=== PATIENT | female | born 1940 | race Caucasian/White ===

== ENCOUNTER 2016-10-11 20:30 | Observation (INO) | payer OTHER ==
[~2016-10-11] VITALS: Ht 162.6 cm; Wt 69.6 kg
--- NOTE | 2016-10-11 21:21 | NUR ---
PT TO [facility] WITH C/O LEENA BP 240/100 AT HOME AND LUE NUMBNESS STARTED AT 6PM. PT DENIES ANY OTHER SIMPTOMS, DENIES ANY PAIN. NUMBNESS RESOLVING NOW AND ONLY AT [facility]. NEUROS INTACT. BP 188/96 IN TRIAGE. HX OF HTN, ARTHRITIS.
--- NOTE | 2016-10-11 22:19 | NUR ---
PT IN RM 7, CHANGED INTO GOWN. AWAITING PROVIDER EVAL
--- NOTE | 2016-10-11 22:30 | ED GENERAL ADULT ---
See Addendum History of Present Illness General Chief Complaint: General Adult Stated Complaint: NUMBNESS IN LEFT ARM, HIGH BP PER FAMILY Source: patient, family Exam Limitations: poor historian Vital Signs & Intake/Output Vital Signs & Intake/Output Vital Signs Date Time Temp Pulse Resp B/P Pulse O2 O2 Flow FiO2 Ox Delivery Rate 10/115 98.7 105 20 128/84 96 Room Air 10/11 2220 Room Air 10/11 2116 98.6 91 18 188/96 96 Room Air ED Intake and Output 10/12 0000 10/11 1200 Intake Total 0 Output Total Balance 0 Intake, Oral 0 Patient 162 lb Weight Allergies Coded Allergies: No Known Allergies (10/11/16) Triage Note: PT TO [facility] WITH C/O LEENA BP 240/100 AT HOME AND LUE NUMBNESS STARTED AT 6PM. PT DENIES ANY OTHER SIMPTOMS, DENIES ANY PAIN. NUMBNESS RESOLVING NOW AND ONLY AT [facility]. NEUROS INTACT. BP 188/96 IN TRIAGE. HX OF HTN, ARTHRITIS. Triage Nurses Notes Reviewed? yes Onset: Abrupt Duration: hour(s): Timing: recent history HPI: 10/11/16 11:13 PM 76-year-old female presents to the emergency department with a sudden onset of her left arm turning white and becoming extremely painful and an inability to move it with numbness to the left arm. According to the patient and her son. Approximately 2 hours prior to admission she had an episode. Over approximately 15-30 minutes the symptoms resolved and the left hand return to normal color. The onset of the symptoms were abrupt, the duration was just earlier this evening, the severity was significant; as her symptoms required to come to the emergency department for care. She has a past medical history of hypertension. On physical exam she is awake alert oriented 3. Cranial nerves are grossly intact. She has no extremity weakness. Capillary refill to the left hand is normal and she has equal palpable radial pulses. (JERO GONZÁLES DO) Past History Travel History Traveled to [place] past 21 day No Medical History Any Pertinent Medical History? see below for history Cardiovascular: hypertension Musculoskeletal: osteoarthritis Surgical History Surgical History: non-contributory Psychosocial History What is your primary language Uzbek Tobacco Use: Never used Family History Hx Contributory? No (JERO GONZÁLES DO) Review of Systems Review of Systems Constitutional: Denies: fever. EENTM: Denies: visual changes. Respiratory: Denies: short of breath. Cardiovascular: Denies: chest pain. GI: Denies: abdominal pain. Genitourinary: Reports: no symptoms. Musculoskeletal: Reports: see HPI. Skin: Reports: no symptoms. Neurological/Psychological: Reports: see HPI. Denies: headache. Hematologic/Endocrine: Reports: no symptoms. (JERO GONZÁLES DO) Physical Exam Physical Exam General Appearance: alert, awake, anxious, moderate distress Head: atraumatic, normal appearance Eyes: Bilateral: normal appearance, PERRL, EOMI. Ears, Nose, Throat: normal pharynx, normal ENT inspection Neck: normal inspection, supple, full range of motion Respiratory: normal breath sounds, chest non-tender, no respiratory distress Cardiovascular: irregularly irregular Peripheral Pulses: 4+ radial (R), 4+ radial (L) Gastrointestinal: soft, non-tender Back: normal range of motion Extremities: normal range of motion, no edema Neurologic/Psych: no motor/sensory deficits, awake, alert, oriented x 3 Skin: intact, normal color, warm/dry Core Measures ACS in differential dx? No CVA/TIA Diagnosis: No Severe Sepsis Present: No Septic Shock Present: No (JERO GONZÁLES DO) Progress Differential Diagnoses I considered the following diagnoses in my evaluation of the patient: [Atrial fibrillation, acute vascular embolization, peripheral vascular disease, aortic dissection, DVT Plan of Care: Orders Procedure Date/time Status XRY-PORTABLE CHEST XRAY 10/[address] UPPER EXT ANGIOGRAM 10/11 2313 Active TROPONIN LEVEL 10/11 2305 Complete PROTHROMBIN TIME 10/11 2305 Complete D-DIMER 10/11 2305 Complete COMPREHENSIVE METABOLIC PANEL 10/11 2305 Complete CBC WITHOUT DIFFERENTIAL 10/11 2305 Complete EKG 10/11 2305 Active Laboratory Tests 10/11/16 2331: Anion Gap 13, Estimated GFR > 60, BUN/Creatinine Ratio 25.0, Glucose 113 H, Calcium 10.3 H, Total Bilirubin 0.5, AST 25, ALT 34, Alkaline Phosphatase 108, Troponin I < 0.01, Total Protein 7.8, Albumin 4.8, Globulin 3.0, Albumin/ Globulin Ratio 1.6, PT 14.4 H, INR 1.38 H, D-Dimer 372 H, CBC w Diff NO MAN DIFF REQ, RBC 5.06, MCV 79.8 L, MCH 25.9 L, RDW 15.6 H, MPV 8.0, Gran % 77.4 H, Lymphocytes % 17.8 L, Monocytes % 3.8, Eosinophils % 0.8, Basophils % 0.2, Absolute Granulocytes 7.4 H, Absolute Lymphocytes 1.7, Absolute Monocytes 0.4, Absolute Eosinophils 0.1, Absolute Basophils 0, PUBS MCHC 32.5 L Initial ED EKG: AFIB Comments: CT scan of the head and left upper extremity with IV contrast are pending. Labs are pending. The patient was signed out to Dr. May at midnight. She was informed that she will need admission for new onset atrial fibrillation, likely acute arterial embolization. (JERO GONZÁLES DO) Departure Departure Disposition: STILL A PATIENT Condition: Stable Clinical Impression Primary Impression: Atrial fibrillation Secondary Impressions: Arterial embolism Referrals: DONIS AGUILAR,FHAEEM Elkins (PCP/Family) Departure Forms: Customer Survey General Discharge Information (JERO GONZÁLES DO) PA/RN TEAM LEADER Co-Sign Statement Statement: ED Attending supervision documentation- [x] I saw and evaluated the patient. I have also reviewed all the pertinent lab results and diagnostic results. I agree with the findings and the plan of care as documented in the PA's/RN TEAM LEADER's documentation. [] I have reviewed the ED Record and agree with the PA's/RN TEAM LEADER's documentation. [] Additions or exceptions (if any) to the PAs/RN TEAM LEADER's note and plan are summarized below: [] (ARACELI AGUILAR,ROSALIA Martinez) Critical Care Note Critical Care Note Critical Care Time: 30-74 min (JERO GONZÁLES DO)
--- NOTE | 2016-10-11 23:49 | NUR ---
BLOODS DRAWN BY [facility] AND SENT TO LAB. EKG DONE. SHOWN TO DR GONZÁLES IV ACCESS ESTABLISHED, RH 20G. 1L NS INFUSING AT 100 ML/HR. PT IS PAIN FREE.
[2016-10-11 23:55] LABS: ABSOLUTE BASOPHIL COUNT 0 /CUMM (0.0-0.2); ABSOLUTE EOSINOPHIL COUNT 0.1 /CUMM (0.0-0.7); ABSOLUTE GRANULOCYTE CT 7.4 /CUMM (1.4-6.5); ABSOLUTE LYMPH COUNT 1.7 /CUMM (1.2-3.4); ABSOLUTE MONOCYTE COUNT 0.4 /CUMM (0.10-0.60); BASOPHIL % 0.2 % (0.0-2.0); EOSINOPHIL % 0.8 % (0-5); GRANULOCYTE % 77.4 % (42.2-75.2); HEMATOCRIT 40.4 % (37-47); MEAN CORPUSCULAR HGB 25.9 PG (27.0-31.0); MEAN CORPUSCULAR HGB CONC 32.5 G/DL (33.0-37.0); MEAN CORPUSCULAR VOLUME 79.8 FL (81.0-99.0); PLATELET COUNT 282 /CUMM (130-400); RBC DISTRIBUTION WIDTH 15.6 % (11.5-14.5); RED BLOOD CELL CT 5.06 /CUMM (4.20-5.40); WHITE BLOOD CELL COUNT 9.6 /CUMM (4.8-10.8)
[2016-10-11 23:56] LABS: PT 14.4 SEC (9.4-12.5)
--- NOTE | 2016-10-12 00:58 | NUR ---
PT TO RADIOLOGY VIA STRETCHER
--- NOTE | 2016-10-12 02:08 | CT SCAN REPORT ---
EXAMINATION: CT HEAD WITHOUT CONTRAST CLINICAL INFORMATION: Left upper extremity weakness. Evaluate for cerebrovascular accident. COMPARISON: No relevant prior imaging available. TECHNIQUE: Contiguous axial imaging was performed from the skull base to vertex without intravenous administration of contrast. DLP: 529.16 mGy-cm FINDINGS: There is no acute intracranial hemorrhage or abnormal extra-axial collection. No intracranial mass effect or midline shift. Lateral and third ventricles are proportionate to the subarachnoid spaces. No hydrocephalus. There are ill-defined foci of hypoattenuation within the periventricular white matter that most likely represent a chronic manifestation of small vessel ischemia. Adams-white matter differentiation is grossly preserved and there is no evidence of acute territorial infarct. The calvarium and skull base are intact. Mastoid air cells and middle ear cavities are well aerated. Visualized paranasal sinuses are well-aerated. IMPRESSION: There chronic small vessel ischemic changes within the periventricular white matter. No evidence of acute territorial infarct or hemorrhage.
--- NOTE | 2016-10-12 02:31 | NUR ---
PT RETURNED FROM CT
--- NOTE | 2016-10-12 02:57 | NUR ---
PORT CXR BEING DONE
--- NOTE | 2016-10-12 03:06 | CT SCAN REPORT ---
EXAMINATION: CT ANGIOGRAM UPPER EXTREMITY, LEFT CLINICAL INFORMATION: Severe left upper extremity weakness and pain. COMPARISON: Chest radiograph same day. TECHNIQUE: Machine Stacker images were obtained. A contrast enhanced CT acquisition of the left upper extremity was performed in the arterial phase after the intravenous administration of contrast. 3 attempts were made during this acquisition. The first attempt was too early and there was no arterial contrast. During the second attempt the contrast leaked onto the CT table. During the second attempt the patient's arm was largely outside of the field of view of the scanner. A total of 96 mL Optiray 320 and 95 mL of Optiray 350 entered the patient. DLP: 2841.48 mGy-cm FINDINGS: The diagnostic accuracy of this examination is significantly limited. The visualized portions of the left axillary artery, and left brachial artery are unremarkable. The arterial branches within the left forearm beyond the elbow are not visible. Limited visualization of the intrathoracic structures demonstrates small bilateral pleural effusions and a tiny pericardial effusion. IMPRESSION: This examination is essentially nondiagnostic. Visualized portions of the left axillary artery and left brachial artery are unremarkable.
--- NOTE | 2016-10-12 03:20 | NUR ---
AWAITING RADIOLOGY REPORT.
--- NOTE | 2016-10-12 03:20 | NUR ---
MD CHARLES TO BEDSIDE FOR EVAL.
--- NOTE | 2016-10-12 03:33 | RADIOLOGY REPORT ---
EXAMINATION: XR PORTABLE CHEST CLINICAL INFORMATION: Left upper extremity pain. COMPARISON: No relevant prior imaging available. TECHNIQUE: Portable AP view of the chest was obtained. FINDINGS: Lungs are well-expanded. There is no focal consolidative disease, pleural effusion, or pneumothorax. The cardiac silhouette is prominent. Upper mediastinal contours are normal. No acute osseous finding. IMPRESSION: Enlarged cardiac silhouette. Otherwise unremarkable examination with no evidence of consolidative disease or effusion.
--- NOTE | 2016-10-12 03:59 | NUR ---
PATIENT DECLINES GUIAC BY MD CHARLES DESPITE EDUCATION REGARDING HEPRAIN DRIP .
--- NOTE | 2016-10-12 04:03 | NUR ---
PATIENT CURRENT BP:186/90, REPORTS HAS NOT TAKEN HER BP MED (METORPOLOL) IN OVER 24 HOURS.
--- NOTE | 2016-10-12 04:07 | NUR ---
HEPARIN DRIP INITIATED AT 26ML/HR MAX DOSE PER EMAR, CALCULATED BY JACKEI RN, DOSE VERIFIED BY HORTENSIA ALTAMIRANO. TOLERATING WELL.
--- NOTE | 2016-10-12 04:10 | NUR ---
HOUSE STAFF TO BEDSIDE FOR EVAL. REPEAT EKG ORDERED BY HOUSE STAFF TO DETERMINE IF SINUS ARRHYTHMIA VS AFIB.
[2016-10-12] MEDS ORDERED: METOPROLOL SUC100 M2 PO (04:46)
[2016-10-12] MEDS ORDERED: LEVOTHYROXINE75 MCG PO (04:46)
--- NOTE | 2016-10-12 04:55 | NUR ---
REPEAT EKG IN PROGRESS .
--- NOTE | 2016-10-12 04:55 | History & Physical ---
JASPREET ALEX MD 10/12/16 0455: General Information and HPI MD Statement: I have seen and personally examined BERYL CINTRON and documented this H&P. The patient is a 76 year old F who presented with a patient stated chief complaint of left arm numbness/pallor adn high blood pressure. Source of Information: patient, family Exam Limitations: poor historian History of Present Illness: Ms. Cintron is a 76 year old [place] female with PMH hypertension, hypothyroidism and osteoarthritis who presents with chief complaint of left arm pallor/pain and high blood pressure. Patient's son is at bedside and participates in interview as patient has limited estonian. As per the son, patient was checking her blood pressure today and the blood pressure cuff was unable to report a reading. The son then attempted checking his blood pressure and was successfully able to do so, so he brought his mother to [facility] to obtain a proper reading. At [facility], his blood pressure was consistently elevated to 240/100, prompting him to bring her to the emergency room. Of note, the patient has not taken her antihypertensive in 24 hours. During this, patient was bending down to grab something from the floor and noted the sudden onset of left arm cramping pain with immediate pallor and numbness to her left forearm and hand. She did not lose motor strength, did not have slurring of her speech or any other neurological findings with this episode. The onset was sudden around 5 in the evening and the pallor was noted to slowly improve around 5:30 PM. Symptoms did not completely resolve until 2 AM. Currently, patient denies fever, chills, chest pain, palpitations, shortness of breath, weakness. She did report slight lethargy and diaphoresis when the arm pain occured Social history is negative for tobacco, alcohol or illicit drug use. She lives at home and performs all of her ADLS and IADLS independantly. She ambulates without assistance. She follows with Dr. Bhagat as her PCP and last saw him in April,. Allergies/Medications Allergies: Coded Allergies: No Known Allergies (10/11/16) Home Med list Levothyroxine Sodium 75 MCG TABLET 1 TAB PO DAILY HYPOTHYROID (Reported) Metoprolol Succinate 100 MG TAB.ER.24H 1 TAB PO DAILY HTN (Reported) Compliance With Home Meds: UNKNOWN Past History Travel History Traveled to [place] past 21 day No Medical History Cardiovascular: hypertension Musculoskeletal: osteoarthritis Surgical History Surgical History: non-contributory Past Family/Social History Psychosocial History Where do you live? Home Who Do You Live With? self Services at Home: None Primary Language: [place] Smoking Status: Never Smoked ETOH Use: denies use Illicit Drug Use: denies illicit drug use Living Will? no Functional Ability ADLs Independent: dressing, eating, toileting, bathing. Ambulation: independent IADLs Independent: shopping, housework, finances, food prep, telephone, transportation , medication admin. Sexual History Sexually Active No Employment History Employment Retired Review of Systems Review of Systems Constitutional: Reports: diaphoresis, malaise. Denies: chills, fever, weakness, unexplained weight loss. EENTM: Denies: visual changes, hearing changes, nasal congestion, throat pain. Cardiovascular: Denies: chest pain, palpitations. Respiratory: Denies: cough, short of breath, wheezing. GI: Denies: abdominal pain, nausea, vomiting. Genitourinary: Denies: dysuria, frequency, hematuria. Musculoskeletal: Reports: muscle pain (Left forearm). Denies: back pain. Skin: Denies: lesions, rash. Neurological/Psychological: Reports: numbness, paresthesia. Denies: anxiety, headache. Hematologic/Endocrine: Denies: bruising, bleeding. Immunologic/Allergic: Denies: splenectomy. Exam & Diagnostic Data Last 24 Hrs of Vital Signs/I&O Vital Signs Date Time Temp Pulse Resp B/P Pulse O2 O2 Flow FiO2 Ox Delivery Rate 10/12 0512 97.7 108 18 220/98 10/12 0508 108 18 220/98 97 Room Air 10/12 0359 97.7 100 18 186/90 97 Room Air 10/11 2335 98.7 105 20 128/84 96 Room Air 10/11 2220 Room Air 10/11 2116 98.6 91 18 188/96 96 Room Air Intake & Output 10/12 0800 10/12 0000 10/11 1600 Intake Total 0 Output Total Balance 0 Intake, Oral 0 Patient 162 lb Weight Physical Exam General Appearance Alert, Oriented X3, Cooperative, No Acute Distress Skin No Rashes, No Breakdown, No Significant Lesion HEENT Atraumatic, PERRLA, EOMI, Mucous Membr. moist/pink Neck Supple, +2 Carotid Pulse wo Bruit Lymphatic Cervical nl Cardiovascular Irregularly irregular Lungs Clear to Auscultation, Normal Air Movement Abdomen Normal Bowel Sounds, Soft, No Tenderness, No Masses Neurological Normal Speech, Strength at 5/5 X4 Ext, Normal Tone, Cranial Nerves 3-12 NL Extremities No Clubbing, No Cyanosis, No Edema, No Tenderness/Swelling Vascular Pulses Symmetrical Last 24 Hrs of Labs/Zachary: Laboratory Tests 10/12/16 0408: APTT Cancelled 10/11/16 2331: Anion Gap 13, Estimated GFR > 60, BUN/Creatinine Ratio 25.0, Glucose 113 H, Calcium 10.3 H, Total Bilirubin 0.5, AST 25, ALT 34, Alkaline Phosphatase 108, Troponin I < 0.01, Total Protein 7.8, Albumin 4.8, Globulin 3.0, Albumin/ Globulin Ratio 1.6, TSH Pending, Free T4 Pending, PT 14.4 H, INR 1.38 H, D- Dimer 372 H, CBC w Diff NO MAN DIFF REQ, RBC 5.06, MCV 79.8 L, MCH 25.9 L, RDW 15.6 H, MPV 8.0, Gran % 77.4 H, Lymphocytes % 17.8 L, Monocytes % 3.8, Eosinophils % 0.8, Basophils % 0.2, Absolute Granulocytes 7.4 H, Absolute Lymphocytes 1.7, Absolute Monocytes 0.4, Absolute Eosinophils 0.1, Absolute Basophils 0, PUBS MCHC 32.5 L Diagnostic Data EKG Results Sinus arrythmia vs atrial fibrillation, HR 107, QTC 481 CXR Results IMPRESSION: Enlarged cardiac silhouette. Otherwise unremarkable examination with no evidence of consolidative disease or effusion. Other Results Head CT: IMPRESSION: There chronic small vessel ischemic changes within the periventricular white matter. No evidence of acute territorial infarct or hemorrhage. Upper extremity CTA: IMPRESSION: This examination is essentially nondiagnostic. Visualized portions of the left axillary artery and left brachial artery are unremarkable. Assessment/Plan Assessment: Ms. Cintron is a 76 year old [place] female with PMH hypertension, hypothyroidism and osteoarthritis who presents with chief complaint of left arm pallor/pain and high blood pressure. Patient reported two automatic blood pressure readings of 240/100 while at [facility]. She subsequently experienced an episode of left forearm and hand numbness, cramping pain and tingling without overt weakness or other neurological deficit. These symptoms have completely resolved and patient is currently in no acute distress and completely asymptomatic. In the ED: Vital signs showed T 98.6, HR 91, RR 18, BP 188/96 and O2 saturation of 96% on room air. Labs showed unremarkable CBC, BUN 20, Glu 113, Ca 10.3, trop 0.01, FT4 1.14, INR 1.[address] showed chronic small vessel ischemic changes within periventricular white matter. No acute infarct. Upper extremity CTA showed unremarkable examination in visualized left axillary and left brachial arteries. CXR showed enlarged cardiac silhouette without consolidative disease or effusion. EKG showed atrial fibrillation vs sinus arrhythmia, HR 107. Patient is on telemetry as an observation and the following is the management: 1. New onset atrial fibrillation vs sinus arrhythmia * EKG suggestive of some P waves? however noted irregularly and poor baseline * Cardiology consult in AM * Patient started on IV heparin in the ED, continue pending cardiology evaluation * Continue beta-wiley for rate control * 2D echocardiogram for AM * First troponin negative, trend troponin/EKG at 6 AM and 12 AM to rule out ACS * FT4 WNL, TSH pending, follow results 2. Left arm claudication * Unknown etiology at this point, unlikely arterial occlusion as symptoms of short duration * CTA left upper extremity negative for embolization * Patient neurovascularly intact without obvious neurovascular deficit * Monitor for recurrent symptoms * Consider vasculitis workup if patient has repeat episodes 3. HTN * Vital signs Q shift, patient slightly elevated BP on admission * Continue metoprolol XL 100 mg PO daily * Additional 2.5 mg PO norvasc daily to improve blood pressure control 4. Hypothyroidism * Continue daily synthroid * FT4 WNL on admission, f/u TSH FULL CODE DVTP: Heparin gtt Diet: Heart Healthy Mild pain pathway As Ranked By This Provider Problem List: 1. Atrial fibrillation 2. Claudication 3. HTN (hypertension) 4. Osteoarthritis Core Measures/Miscellaneous Acute Coronary Syndrome ACS Diagnosis: No Cerebrovascular Accident CVA/TIA Diagnosis: No Congestive Heart Failure CHF Diagnosis: No Venous Thromboembolism VTE Risk Factors: Acute medical illness, Age > 40, Obesity No [facility] VTE prophylaxis d/t: No contraindications No VTE Pharm Prophylaxis d/t: No contraindications VTE Diagnosis: No VTE Type: NONE VTE Confirmed by (Test): NONE Severe Sepsis Severe Sepsis Present: No Septic Shock Septic Shock Present: No Miscellaneous Documentation Attending Case Discussed With: ROSMERY HO MD Primary Care Physician: DONIS AGUILAR,FAHEEM Person. Patient sees these Specialists None. Level of Patient Care: Telemetry ROSE PATTERSON MD 10/12/16 0543: Resident Review Statement Resident Statement: examined this patient, discussed with healthcare administration internship, agreed with healthcare administration internship Other Findings: 76 y/o F with a PMH of OA, HTN and Hypothyroidism, who presents to the ED after an episode of numbness, change in color and pain of her left arm along with elevated blood pressure. Patient herself speaks mostly [place]. Her son, who was present in the room, did some translating for her. She reports feeling her left hand feel numb, change in color and start to hurt at around 5 PM last evening. The color gradually started to come back in 30 minutes, but did not return to normal till 2 AM this morning. Her son checked her BP, but this was not recordable on her device at home. She was then taken to [facility], where her recorded BP was 240/100. He then brought her to the ED to undergo further evaluation. Patient currently reports return to baseline with respect to her arm. She was found to be in Atrial Fibrillation. CTA of the arm did not reveal the presence of a clot. Vitals: 98.7/95-105/18-20/124/84-188/96/96% on RA Exam: Irregularly irregular rhythm. Strength was preserved in the left upper extremity with no discoloration noted. Labs: WNL Imaging: Head CT did not show any acute changes CTA of the upper extremity: No clot CXR: Enlarged cardiac silhoutte EKG: Afib vs Sinus Arrhythmia (P waves can be marched out). Problem List: 1) New onset Atrial Fibrillation 2) LUE discoloration and numbness 2/2 possible nerve entrapment vs ??vasculitis 3) Hypertension on Metoprolol 4) Hypothyroidism on LT4 Plan: * Admit to telemetry as obs * Start heparin drip with Afib protocol * Patient is currently rate controlled * Continue home Metoprolol and LT4 * Cardiac consult in AM * ECHO in AM * Trops and EKG x 3 (6 AM and 12 noon) * DVT PPX: Heparin Drip * Pain Pathway: Tylenol PRN * Code Status: Full Code ROSMERY HO 10/12/16 0733: Attending MD Review Statement Attending Statement Attending MD Statement: examined this patient, discuss w/resident/PA/HARDWARE SALES ASSISTANT, agreed w/resident/PA/HARDWARE SALES ASSISTANT, discussed with family, reviewed EMR data (avail), reviewed images, amended to note Attending Assessment/Plan: cc : Elevated blood pressure, left arm numbness and pallor PMH: HTN, hypothyroidism, OA Patient is poor historian, and difficult communication because of language barrier. Patient's blood pressure was elevated at home when tried on blood pressure machine so was checked at [facility], which was 240/100, during the same time patient also noticed left hand pain, numbness, change in color. Change in color lasted for 30 minutes (?), Pain and numbness was better after coming to ER. Vitals: Heart rate blood pressure fluctuating, HR 100s, blood pressure 220/98, saturating well on room air. On examination: A O 3, anxious, no acute distress, no focal neurological deficit, neck supple, no JVD, no lymphadenopathy, no pedal edema CVS: S1-S2 irregular, no murmurs. RS: Clear to auscultate bilaterally. Abdomen: Soft, NT, ND, bowel sounds present, peripheral pulses normal 4 extremities, and perfusion intact. No obvious color changes. Labs: CBC, BMP, troponin, LFT unremarkable except calcium is 10.3 but albumin is 4.8, INR 1.38, d-dimer 372. EKG: ? Artifact versus A. fib versus sinus arrhythmia CXR, upper extremity CTA, CT head 1. Enlarged cardiac silhouette. Otherwise unremarkable examination with no evidence of consolidative disease or effusion. 2. This examination is essentially nondiagnostic. Visualized portions of the left axillary artery and left brachial artery are unremarkable. 3. There chronic small vessel ischemic changes within the periventricular white matter. No evidence of acute territorial infarct or hemorrhage. A and P #1 hypertensive urgency : Blood pressure fluctuating, continue home doses of metoprolol, add amlodipine 2.5 mg, closely monitor, observe on telemetry. #2 new onset A. fib: Patient and her son are not aware of any irregular heart beating the past. EKG is unclear if sinus arrhythmia versus A. fib, pulse irregularly irregular. Patient has been started on heparin in ER, continue heparin for now, cardiology consult, 2-D echo, observe on telemetry, trend troponin, serial EKGs. #3 left arm pain and discoloration: Unclear etiology, pulses, perfusion and color currently normal. CTA left upper extremity unremarkable, ?claudication, again rule out ACS, with troponin and serial EKGs. #4 history of hypothyroidism: Continue home medications
--- NOTE | 2016-10-12 04:59 | NUR ---
MD ROTHMAN AT BEDSIDE FOR EVAL.
--- NOTE | 2016-10-12 05:11 | NUR ---
BP:220/98 MANUALLY AT THIS TIME, HR IRREGULAR. PATIENT MEDICATED W/ METOPROLOL PER EMAR. TOLERATED WELL.
--- NOTE | 2016-10-12 05:16 | NUR ---
PATIENT REPORTS DOES NOT TAKE NORVASC AT HOME AND WOULD LIKE TO WAIT 30 MINUTES TO CHECK THE BP IMPROVEMENT FROM THE METOPROLOL PRIOR TO TAKING NORVASC. EDUCATED ON RISKS OF HTN.
--- NOTE | 2016-10-12 05:39 | NUR ---
REPORT CALLED TO DAVON ALTAMIRANO.
--- NOTE | 2016-10-12 05:57 | NUR ---
HOUSE STAFF AWARE OF ORDER FOR 0600 EKG, EKG OBTAINED LESS THAN 1 HOUR AGO, PER HOUSE STAFF, EKS AND TROP TO BE OBTAINED AT 0600. MST AT BEDSIDE.
--- NOTE | 2016-10-12 06:01 | NUR ---
BP:178/84 AT THIS TIME, PATIENT REQUESTING TO CONTINUE TO WAIT FOR NORVASC ADMINISTRATION DESPITE EDUCATION BY RN.
--- NOTE | 2016-10-12 06:21 | NUR ---
EKG AND TROP COMPLETED.
[2016-10-12 06:57] VITALS: BP 184/92
--- NOTE | 2016-10-12 07:49 | NUR ---
PT ARRIVES TO THE UNIT VIA [facility]. MOVED HERSELF ONTO HOSPITAL BED INDEPENDENTLY. A/OX3. CLEAR SPEECH. DENIES NUMBNESS/TINGLING IN EXTREMITIES. +CMS. LUNGS CTA, RA. SAT 97%. NO SOB. ABD SOFT, FLAT. +BS. LAST BM 10/11. DENIES TENDERNESS. SKIN INTACT, NO EDEMA. PT DENIES CP OR PALPITATIONS. BP 184/92. PT REFUSING 5MG AMLODIPINE AND WANTING TO SEE THE EFFECTS OF MEDS RECEIVED IN ER BEFORE TAKING EXTRA PILLS. PT EDUCATED ON RISKS OF ELEVATED BP BUT PT STILL REFUSING MEDICINE. HR 70S IN WHAT APPEARS TO BE AFIB BUT OCCASIONAL P WAVES NOTICED. WHEN AMBULATING, HR TACHY TO 130S. HEPARIN GTT RUNNING AT 26 ML/HR. PT WEIGHED UPON ARRIVAL. PT ORIENTED TO ROOM, TOILETED, AND ORIENTED [employer] SENATOR FELIZ SYSTEM. INFORMED TO CALL FOR ASSISTANCE WITH IV POLE TO BATHROOM. NO BED ALARM NEEDED. BED LOW AND LOCKED. WILL CTM.
--- NOTE | 2016-10-12 07:51 | PN- Housestaff ---
Subjective Follow-up For: - left arm palor - new onset a fib Complaints: no complaints Tele-Events Since Last Visit: Atrial fibrillation, heart rate 84-86 bpm. Subjective: The patient comfortable this morning. Did not have any complaints. Stated that pain in left upper extremity has improved. He does not have any tingling/ numbness sensation in left upper extremity. Blood pressure was elevated which stabilized during the day. Remained afebrile overnight. Review of Systems Constitutional: Reports: see HPI. Objective Last 24 Hrs of Vital Signs/I&O Vital Signs Date Time Temp Pulse Resp B/P Pulse O2 O2 Flow FiO2 Ox Delivery Rate 10/12 0657 97.8 76 20 184/92 97 Room Air 10/12 0601 81 178/84 10/12 0512 97.7 108 18 220/98 10/12 0508 108 18 220/98 97 Room Air 10/12 0359 97.7 100 18 186/90 97 Room Air 10/11 2335 98.7 105 20 128/84 96 Room Air 10/11 2220 Room Air 10/11 2116 98.6 91 18 188/96 96 Room Air Intake & Output 10/12 0800 10/12 0000 10/11 1600 Intake Total 0 Output Total Balance 0 Intake, Oral 0 Patient 154 lb 162 lb Weight Physical Exam General Appearance: No Acute Distress Other Physical Findings: General Exam: AAOx3, No acute distress, Skin: No rashes, no breakdown HEENT: PERRLA, EOMI Neck: Supple, No JVD No cervical lymphadenopathy CVS: Reg Rate, Normal S1,S2, No MGR Resp: Normal air entry, no ronchi/rales Abdomen: Soft, No tenderness, Normal Bowel Sounds Neuro: Normal Speech, Strength 5/5 b/l x 4 extremities, Sensation intact, CN III -XII NL, Reflexes 2+ Extremities: No cyanosis, pedal edema Current Medications: Current Medications Sig/Yajaira Start time Last Medication Dose Route Stop Time Status Admin Acetaminophen 650 MG Q6P PRN 10/12 0445 AC PO Amlodipine Besylate 2.5 MG DAILY 10/12 0515 AC PO Heparin Sodium 25,000 UNIT Q24H 10/12 0345 AC 10/12 (Porcine) IV 0403 Sodium Chloride 500 ML Levothyroxine Sodium 0.075 MG DAILY AC 10/12 0700 AC PO Metoprolol Succinate 100 MG DAILY 10/12 0500 AC 10/12 PO 0512 Sodium Chloride 1,000 ML Q10H 10/11 2315 DC 10/11 IV 2350 Last 24 Hrs of Lab/Zachary Results Last 24 Hrs of Labs/Mics: Laboratory Tests 10/12/16 0614: Troponin I < 0.01 10/12/16 0408: APTT Cancelled 10/11/16 2331: Anion Gap 13, Estimated GFR > 60, BUN/Creatinine Ratio 25.0, Glucose 113 H, Calcium 10.3 H, Total Bilirubin 0.5, AST 25, ALT 34, Alkaline Phosphatase 108, Troponin I < 0.01, Total Protein 7.8, Albumin 4.8, Globulin 3.0, Albumin/ Globulin Ratio 1.6, TSH 1.820, Free T4 1.14, PT 14.4 H, INR 1.38 H, D-Dimer 372 H, CBC w Diff NO MAN DIFF REQ, RBC 5.06, MCV 79.8 L, MCH 25.9 L, RDW 15.6 H, MPV 8.0, Gran % 77.4 H, Lymphocytes % 17.8 L, Monocytes % 3.8, Eosinophils % 0.8, Basophils % 0.2, Absolute Granulocytes 7.4 H, Absolute Lymphocytes 1.7, Absolute Monocytes 0.4, Absolute Eosinophils 0.1, Absolute Basophils 0, PUBS MCHC 32.5 L Assessment/Plan Assessment: Ms Cintron is a 76-year-old woman with a past history of hypertension, hypothyroidism is being evaluated for a chief concern of left upper extremity pain 1 day and elevated blood pressure. Recorded blood pressure SBP above 240. At the time of admission, temperature 98.6, pulse rate 91, respiration 18, blood pressure 188/96, pulse ox 96% on room air. Lab findings indicated no leukocytosis, WBC 9.6, hemoglobin 13.1 (MCV 79.8), hematocrit 40.4, platelets 282. Normal electrolytes-sodium 142, potassium 4.1. Bicarbonate 25, BUN 28, serum creatinine 0.8. EKG revealed atrial fibrillation, heart rate 107, QTC 481. Cardiac enzymes and serial EKGs were within normal limits. TSH 1.82, free T4 1 0.14. Radiology findings revealed chest x-ray did not reveal any evidence of consolidative disease or effusion. CT head did not show any acute findings, chronic small vessel ischemic changes with periventricular white matter was seen. Upper extremity CTA was attempted-which was nondiagnostic. Differential diagnosis: #1 atrial fibrillation (paroxysmal) #2 hypertensive urgency Below is the problem list and plan: #1 atrial fibrillation-paroxysmal, currently rate controlled heart rate 84-86. Intravenous heparin was started, which was transitioned to apixaban. Currently on metoprolol XL 100 mg by mouth daily. Aki VASC score 2, moderate risk with 4 % yearly risk of stroke without treatment. Has bled score of 2 with intermediate risk with estimated date of major bleeding within 1 years of oral anticoagulations in between 1.88-3.2%. Would require anticoagulation for stroke prophylaxis based on guidelines. Dr. Camargo advising #2 hypertensive urgency-blood pressure was elevated at the time of admission. Currently adequately controlled with metoprolol XL, amlodipine and lisinopril. Continue to monitor closely. #3 DVT prophylaxis-Eliquis. #4 hypothyroidism-continue with Synthroid. Problem List: 1. HTN (hypertension) 2. Atrial fibrillation Pain Ratin Pain Location: Left upper extremity Pain Goal: Pain 4 or less Pain Plan: Tylenol when necessary Tomorrow's Labs & Rationales: CBC to monitor for H&H. The patient started on anticoagulation this morning. DVT/Prophylaxis: pharmacological Consulting Request: Consulting Specialty: Cardiology Discharge Plan Discharge Disposition: home Stable for Discharge? Yes Anticipated Discharge (Day): tomorrow
[2016-10-12 09:59] LABS: ABSOLUTE BASOPHIL COUNT 0 /CUMM (0.0-0.2); ABSOLUTE EOSINOPHIL COUNT 0.1 /CUMM (0.0-0.7); ABSOLUTE GRANULOCYTE CT 6.1 /CUMM (1.4-6.5); ABSOLUTE LYMPH COUNT 2.1 /CUMM (1.2-3.4); ABSOLUTE MONOCYTE COUNT 0.7 /CUMM (0.10-0.60); BASOPHIL % 0.2 % (0.0-2.0); EOSINOPHIL % 0.9 % (0-5); GRANULOCYTE % 67.8 % (42.2-75.2); HEMATOCRIT 39.5 % (37-47); MEAN CORPUSCULAR HGB 26.1 PG (27.0-31.0); MEAN CORPUSCULAR HGB CONC 32.6 G/DL (33.0-37.0); MEAN PLATELET VOLUME 8.2 FL (7.4-10.4); PLATELET COUNT 267 /CUMM (130-400); RBC DISTRIBUTION WIDTH 16.1 % (11.5-14.5); RED BLOOD CELL CT 4.94 /CUMM (4.20-5.40); WHITE BLOOD CELL COUNT 9.1 /CUMM (4.8-10.8)
--- NOTE | 2016-10-12 10:10 | Cons- Cardiology ---
General Information and HPI Consulting Request Date of Consult: 10/12/16 Requested By: ROSMERY HO MD History of Present Illness: This patient is a 76 year old female with history of hypertension who presented to the ER for evaluation of left arm discomfort and severely elevated blood pressure. After noting a left arm discomfort the patient tried to take her blood pressure but without success. She thought her BP machine was not working and went to [employer] to obtain a reading which was elevated to 240/100mmHg. In the ER this patient was confirmed to be hypertensive and was also noted to be in atrial fibrillation with increased heart rate. She denies any prior diagnosis of this dysrhythmia. The patient denies any chest pain, shortness of breath, lightheadedness or palpitations. She does not have a headache, blurred vision or change in urination. Allergies/Medications Allergies: Coded Allergies: No Known Allergies (10/11/16) Home Med List: Levothyroxine Sodium 75 MCG TABLET 1 TAB PO DAILY HYPOTHYROID (Reported) Metoprolol Succinate 100 MG TAB.ER.24H 1 TAB PO DAILY HTN (Reported) Review of Systems Review of Systems: A twelve point review of systems is unobtainable. 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 Home Who Do You Live With? self Services at Home: None Primary Language: Sammarinese Smoking Status: Never Smoked ETOH Use: denies use Illicit Drug Use: denies illicit drug use Living Will? no Functional Ability ADLs Independent: dressing, eating, toileting, bathing. Ambulation: independent IADLs Independent: shopping, housework, finances, food prep, telephone, transportation , medication admin. Employment History Employment: Retired Exam & Diagnostic Data Vital Signs and I&O Vital Signs Date Time Temp Pulse Resp B/P Pulse O2 O2 Flow FiO2 Ox Delivery Rate 10/12 0920 76 162/90 10/12 0657 97.8 76 20 184/92 97 Room Air 10/12 0601 81 178/84 10/12 0512 97.7 108 18 220/98 10/12 0508 108 18 220/98 97 Room Air 10/12 0359 97.7 100 18 186/90 97 Room Air 10/11 2335 98.7 105 20 128/84 96 Room Air 10/11 2220 Room Air 10/11 2116 98.6 91 18 188/96 96 Room Air Intake & Output 10/12 1600 10/12 0800 10/12 0000 10/11 1600 10/11 0800 10/11 0000 Intake Total 0 Output Total Balance 0 Intake, Oral 0 Patient 154 lb 162 lb Weight Physical Exam: General: WD/ WN female in NAD; alert and oriented x 3 HEENT: NC/ AT, PERRL, EOMI, clear oropharynx Neck: no JVD, no carotid bruit Heart: irregularly irregular with 2/6 systolic murmur Lungs: clear bilaterally Abdomen: soft, NT, +ve bowel sounds Extremities: no edema Diagnostic Data EKG Results atrial fibrillation Assessment/Plan Assessment/Plan * This patient has atrial fibrillation of unknown duration. Continue her current dose of Metoprolol for rate control. TFT's appear WNL. Obtain and echocardiogram. * This patient should be started on Eliquis 5mg BID for stroke prophylaxis. * The patient's blood pressure has come down and her left arm paresthesia is improved. This arm discomfort was likely due to subendocardial ischemia in the setting of severe hypertension. It is unclear if she has any chest discomfort. She does need to be risk stratified for ischemia. This will be done as an outpatient when she has a better controlled blood pressure. For now she should be on a low sodium diet. Continue Metoprolol and Amlodipine. Begin Lisinopril 10mg daily. We will increase this as needed for better control of her blood pressure. Consult Acknowledgment - Thank you for your consult request.
[2016-10-12 10:24] LABS: PTT 102 SEC (25-37)
[2016-10-12 16:51] VITALS: BP 152/87
--- NOTE | 2016-10-12 21:06 | Patient Discharge Instructions ---
Discharge Instructions General Discharge Information You were seen/treated for: Atrial fibrillation Watch for these problems: #1 chest pain, shortness of breath, palpitations #2 lightheadedness, dizziness Special Instructions: #1 please follow-up with your primary care provider within 1-2 weeks of discharge. #2 please follow-up with your brush cleaner within 1-2 weeks of discharge. #3 please take your medications as prescribed. #4 you have been been started on a blood thinner, and if you notice any dark stool, blood in stool-please contact your primary care provider as soon as possible for seek medical advice at once immediately. Acute Coronary Syndrome Inclusion Criteria At DC or during hospital stay patient has or had the following: ACS DIAGNOSIS No Discharge Core Measures Meds if any: Prescribed or Continued at Discharge Meds if any: NOT Prescribed or Continued at Discharge Congestive Heart Failure Inclusion Criteria At DC or during hospital stay patient has or had the following: CHF DIAGNOSIS No Discharge Core Measures Meds if any: Prescribed or Continued at Discharge Meds if any: NOT Prescribed or Continued at Discharge Cerebrovascular accident Inclusion Criteria At DC or during hospital stay patient has or had the following: CVA/TIA Diagnosis No Discharge Core Measures Meds if any: Prescribed or Continued at Discharge Meds if any: NOT Prescribed or Continued at Discharge Venous thromboembolism Inclusion Criteria VTE Diagnosis No VTE Type NONE VTE Confirmed by (Test) NONE Discharge Core Measures - Per Current guidelines, there needs to be overlap - treatment for the first 5 days of Warfarin therapy. - If discharged on Warfarin prior to 5 days of - overlap therapy, the patient will need to be - assessed for post discharge needs including - *Post discharge parental anticoagulation - *Warfarin and/or parental anticoagulation education - *Follow up date to check INR post discharge At least 5 days overlap therapy as Inpatient No Meds if any: Prescribed or Continued at Discharge Note: Overlap Therapy is Warfarin and Anticoagulant Meds if any: NOT Prescribed or Continued at Discharge
[2016-10-12 22:48] VITALS: BP 112/64
--- NOTE | 2016-10-13 05:33 | PN- Housestaff ---
Subjective Follow-up For: #1 atrial fibrillation Complaints: no complaints Tele-Events Since Last Visit: Atrial fibrillation, heart rate in the range of 60-70s, multiple PVCs were noted. Subjective: Ms Cintron is comofortable. She did not have any chest pain, palpitations or shortness of breath. Vitals were stable overnight. Blood pressure was adequately controlled on current antihypertensive regimen. Review of Systems Constitutional: Reports: see HPI. Objective Last 24 Hrs of Vital Signs/I&O Vital Signs Date Time Temp Pulse Resp B/P Pulse O2 O2 Flow FiO2 Ox Delivery Rate 10/12 2248 98.2 103 16 112/64 97 Room Air 10/12 1651 97.6 78 17 152/87 97 Room Air 10/12 1405 81 140/80 10/12 0920 76 162/90 10/12 0657 97.8 76 20 184/92 97 Room Air 10/12 0601 81 178/84 Intake & Output 10/13 0800 10/13 0000 10/12 1600 Intake Total 250 480 Output Total Balance 250 480 Intake, IV 10 Intake, Oral 240 480 Physical Exam General Appearance: No Acute Distress Other Physical Findings: General Exam: AAOx0, No acute distress, Skin: No rashes, no breakdown HEENT: PERRLA, EOMI Neck: Supple, No JVD No cervical lymphadenopathy CVS: Reg Rate, Normal S1,S2, No MGR Resp: Normal air entry, no ronchi/rales Abdomen: Soft, No tenderness, Normal Bowel Sounds Neuro: Normal Speech, Strength 5/5 b/l x 4 extremities, Sensation intact, CN III -XII NL, Reflexes 2+ Extremities: No cyanosis, pedal edema Current Medications: Current Medications Sig/Yajaira Start time Last Medication Dose Route Stop Time Status Admin Acetaminophen 650 MG Q6P PRN 10/12 0445 AC PO Amlodipine Besylate 2.5 MG DAILY 10/12 0515 AC 10/12 PO 0920 Apixaban 5 MG BID 10/12 1114 AC 10/12 PO 2107 Heparin Sodium 25,000 UNIT Q24H 10/12 0345 DC 10/12 (Porcine) IV 0403 Sodium Chloride 500 ML Levothyroxine Sodium 0.075 MG DAILY AC 10/12 0700 AC 10/12 PO 0917 Lisinopril 10 MG DAILY 10/12 1110 AC 10/12 PO 1405 Metoprolol Succinate 100 MG DAILY 10/12 0500 AC 10/12 PO 0512 Patient Medication 1 ED .STK-MED ONE 10/12 1348 DC Teaching ED 10/12 1349 Sodium Chloride 1,000 ML Q10H 10/11 2315 DC 10/11 IV 2350 Last 24 Hrs of Lab/Zachary Results Last 24 Hrs of Labs/Mics: Laboratory Tests 10/12/16 1225: Troponin I < 0.01 10/12/16 0920: Anion Gap 10, Estimated GFR > 60, BUN/Creatinine Ratio 22.9, APTT 102 *H, CBC w Diff NO MAN DIFF REQ, RBC 4.94, MCV 80.0 L, MCH 26.1 L, RDW 16.1 H, MPV 8.2, Gran % 67.8, Lymphocytes % 23.4, Monocytes % 7.7, Eosinophils % 0.9, Basophils % 0.2, Absolute Granulocytes 6.1, Absolute Lymphocytes 2.1, Absolute Monocytes 0.7 H, Absolute Eosinophils 0.1, Absolute Basophils 0, PUBS MCHC 32.6 L 10/12/16 0614: Troponin I < 0.01 Assessment/Plan Assessment: Ms Cintron is a 76-year-old woman with a past history of hypertension, hypothyroidism is being evaluated for a chief concern of left upper extremity pain 1 day and elevated blood pressure. Recorded blood pressure SBP above 240. Differential diagnosis: #1 atrial fibrillation (paroxysmal) #2 hypertensive urgency Below is the problem list and plan: #1 atrial fibrillation-paroxysmal, currently rate controlled heart rate 84-86. Intravenous heparin was started, which was transitioned to apixaban. Currently on metoprolol XL 100 mg by mouth daily. Aki VASC score 2, moderate risk with 4 % yearly risk of stroke without treatment. Has bled score of 2 with intermediate risk with estimated date of major bleeding within 1 years of oral anticoagulations in between 1.88-3.2%. Would require anticoagulation for stroke prophylaxis based on guidelines. Dr. Camargo advising #2 hypertensive urgency-blood pressure was elevated at the time of admission. Currently adequately controlled with metoprolol XL, amlodipine and lisinopril. Continue to monitor closely. #3 DVT prophylaxis-Eliquis. #4 hypothyroidism-continue with Synthroid. Problem List: 1. Osteoarthritis 2. HTN (hypertension) Pain Ratin Pain Location: Lower extremities Pain Goal: Pain 4 or less Pain Plan: Tylenol when necessary Tomorrow's Labs & Rationales: No labs necessary. DVT/Prophylaxis: pharmacological Consulting Request: Consulting Specialty: Cardiology
[2016-10-13 08:08] LABS: ABSOLUTE BASOPHIL COUNT 0 /CUMM (0.0-0.2); ABSOLUTE EOSINOPHIL COUNT 0.2 /CUMM (0.0-0.7); ABSOLUTE LYMPH COUNT 2.1 /CUMM (1.2-3.4); ABSOLUTE MONOCYTE COUNT 0.7 /CUMM (0.10-0.60); BASOPHIL % 0.4 % (0.0-2.0); HEMATOCRIT 36.4 % (37-47); MEAN CORPUSCULAR HGB CONC 32.4 G/DL (33.0-37.0); MEAN CORPUSCULAR VOLUME 80.1 FL (81.0-99.0); MEAN PLATELET VOLUME 8.1 FL (7.4-10.4); PLATELET COUNT 215 /CUMM (130-400); RED BLOOD CELL CT 4.54 /CUMM (4.20-5.40); WHITE BLOOD CELL COUNT 5.9 /CUMM (4.8-10.8)
[2016-10-13 08:31] VITALS: BP 123/81
[2016-10-13] MEDS ORDERED: LISINOPRIL10 M1 PO (09:01)
[2016-10-13] MEDS ORDERED: ELIQUIS5 M1 PO (09:02)
[2016-10-13] MEDS ORDERED: AMLODIPINE BES2.5 M1 PO (09:02)
[2016-10-13 09:12] VITALS: BP 123/81
== END 2016-10-13 13:15 ==
LOC: ENRESERVTM → ENRESERVDT → ERH 20:30 → ENPENDDIS 10-12 03:43 → ERHI 10-12 03:43 → 1NO 10-12 06:33
PROVIDERS: Emergency Medicine; Internal Medicine; Internal Medicine Endocrinology, Diabetes & Metabolism; ADMIT Internal Medicine
DX: I48.0 Paroxysmal atrial fibrillation (principal); Z79.01 Long term (current) use of anticoagulants; I10 Essential (primary) hypertension; Z86.718 Personal history of other venous thrombosis and embolism; E03.9 Hypothyroidism, unspecified; M19.90 Unspecified osteoarthritis, unspecified site; M79.602 Pain in left arm
CPT/HCPCS: 82436; 93005; 93010; 96374; 99291; G0378; J1644; J7508